=== PATIENT | male | born 1995 | race Caucasian/White ===

== ENCOUNTER → 2020-12-19 | Emergency (ER) | payer OTHER ==
[~2020-12-19] VITALS: Ht 175.3 cm; Wt 72.6 kg
[~2020-12-19] MED LIST: GENVOYA TABLET1 EACH; MOXIFLOXACIN H400 MG PO; MUCINEX D ER 11 EACH PO
== END | disposition home or self-care (01) ==
LOC: ER 15:02
DX: U07.1 COVID-19 (principal); J12.82 Pneumonia due to coronavirus disease 2019